=== PATIENT | female | born 1945 | race Caucasian/White ===

== ENCOUNTER 2020-03-26 11:26 | Inpatient (IN) | payer OTHER ==
[2020-03-26 12:43] LABS: Absolute Lymphocytes (CBC) 0.9 K/uL (0.7-4.9); Basophils % 0.4 % (0-1.3); Hematocrit 42.3 % (36.0-45.0); Lymphocytes % 7.7 % (15.3-44.8); MPV 7.7 fL (7.6-11.3); RBC Red Blood Cell Count 4.43 M/uL (3.86-4.86)
--- NOTE | 2020-03-26 12:48 | RAD REPORT ---
EXAM DESCRIPTION: RAD - Chest Single View - 03/26/2020 12:34 pm CLINICAL HISTORY: SOB Chest pain. COMPARISON: CHEST PA AND LAT 2 VIEW dated 05/08/2009 FINDINGS: Portable technique limits examination quality. Bilateral pulmonary opacities are present which may represent interstitial pneumonitis. This is likel y superimposed on a component of underlying pulmonary fibrosis. The heart is normal in size. No displ aced fractures.
[2020-03-26 13:04] LABS: Albumin 3.7 g/dL (3.4-5.0); Bilirubin Direct 0.2 mg/dL (0-0.2); Bilirubin Total 0.9 mg/dL (0.2-1.0); Magnesium 2.3 mg/dL (1.8-2.4); Potassium 4.7 mmol/L (3.5-5.1); Protein, Total 8.7 g/dL (6.4-8.2); Troponin (Emerg Dept Use Only) 0.02 ng/mL (0.0-0.045)
[2020-03-26 13:47] LABS: Blood Morphology Comment NOT SEEN (NOT SEEN); Platelet Estimate ADEQ; Urine White Blood Cell Casts OK
--- OUTSIDE RECORDS SUMMARY | 2020-03-26 15:28 | XMS REPORT ---
:1945 Author Organization e[employer]Works Care Team Providers Name Role Phone Julianne Turcios Provider Role Unavailable Allergies, Adverse Reactions, Alerts Substance Reaction Event Type Myrbenicoleroberta hali Drug Allergy Problems Problem Type Condition Code Onset Dates Condition Statu s Assessment Moderate protein-calorie E44.0 Act aneudy malnutrition Problem Atherosclerotic heart disease of I25.10 Active [place] coronary artery without angina pectoris Assessment Memory loss or impairment R41.3 Ac tive Problem Primary insomnia F51.01 Active Assessment Atherosclerotic heart disease of I25.10 Active [place] coronary artery without angina pectoris Problem Pure hypercholesterolemia E78.00 Ac tive Problem BMI 21.0-21.9, adult Z68.21 Active Problem Acquired hypothyroidism E03.9 Acti ve Problem Memory loss or impairment R41.3 Ac tive Problem Reactive depression F32.9 Active Assessment Pure hypercholesterolemia E78.00 Ac tive Assessment Essential hypertension I10 Activ e Problem Moderate protein-calorie E44.0 Act aneudy malnutrition Assessment Acquired hypothyroidism E03.9 Acti ve Problem Left hip pain M25.552 Active Problem Screening for breast cancer Z12.31 Active Problem Mixed stress and urge urinary N39.46 Active incontinence Problem Screening for osteoporosis Z13.820 A ctive Problem Age-related osteoporosis without M81.0 Active current pathological fracture Problem Encounter for immunization Z23 A ctive Assessment Type 2 diabetes mellitus without E11.9 Active complication, without long-term current use of insulin Problem Essential hypertension I10 Activ e Problem Coronary atherosclerosis due to I25.84 Active severely calcified coronary lesion Problem Diabetic mononeuropathy due to E13.41 Active secondary diabetes mellitus Problem Type 2 diabetes mellitus without E11.9 Active complication, without long-term current use of insulin Medications Medication Code Code Instructions Start End Status Dosage System Date Date Levothyroxine [facility] 61252135946 25 MCG Active TAKE O NE Sodium TABLET BY MOUTH DAILY Lipitor ND 79782317907 20 MG Active TAKE ONE TABLET BY MOUTH DAILY Lisinopril ND 51161177393 10 MG Orally Active 1 ta blet Once a day Metoprolol [facility] 53407440442 100 MG Orally Active sherin e one Succinate ER Once a day tablet b y mouth daily Sertraline HCl [facility] 67163922774 25 MG Orally Sep 22, Active 1 tablet Once a day 2018 Amaryl [facility] 68364520819 2 MG Orally Active 1 tablet Once a day with breakfast or the first main meal of the day Gabapentin [facility] 21361168608 300 MG Active TAKE ONE CAPSULE BY MOUTH TWICE A DAY Plavix [facility] 83906274023 75 MG Active TAKE ONE TABLET BY MOUTH DAILY Aricept [facility] 54477227561 10 MG Orally Oct 21, Active 1 table t at Once a day 2019 bedtime Megestrol [facility] 81221547185 40 MG Orally March 07, Active 1 tab let Acetate Twice a day 2019 Vitamin D-3 [facility] 45297537855 1000 UNIT Active 1 caps ule Orally Once a day Estradiol [facility] 57618604120 0.1 MG/GM Active 1 gm Vaginal three times a week Results Name Result Date Reference Range Unit Abnormali ty Flag HEMOGLOBIN A1C ----A1C 5.6 [id number] Summary Purpose eClinicalWorks Submission
--- OUTSIDE RECORDS SUMMARY | 2020-03-26 15:28 | XMS REPORT | Continuity of Care Document ---
:1945 Author Organization [facility] t Address [address] [place] [address] Care Team Providers Name Role Phone Unavailable Unavailable Unavailable Problems Condition Condition Condition Status Onset Resolution Last Treating Co mments Source Name Details Category Date Date Treatment Clinician Date Essential Essential Problem Active [facility] hypertensi hypertensi [facility]ila kes - on on [facility] Diabetic Diabetic Problem [facility] mononeurop mononeurop [facility] kes - athy due athy due Memori a to to l secondary secondary Outp ati diabetes diabetes ent mellitus mellitus Clinic s Encounter Encounter Problem [facility] immun[facility]ati immunizati Me moria on on l Outpati ent Clinics Coronary Coronary Problem [facility] atheroscle atheroscle [facility] - rosis due rosis due Koko lola to to l severely severely Outpat i calcified calcified ent coronary coronary Clinic s lesion lesion Pure Pure Diagnosis Active [facility] hyperchole hyperchole [facility]ila kes - sterolemia sterolemia Me moria l [facility] Acquired Acquired Diagnosis Active [facility] hypothyroi hypothyroi [facility]ila kes - dism dism Memoria l Outpati ent Clinics Type 2 Type [address] [facility] diabetes diabetes [facility] - mellitus mellitus Memori a without without l complicati complicati Ou tpati on, on, ent without without Clinics long-term long-term current current use of use of insulin insulin Primary Primary Problem Active [facility] insomnia insomnia [facility] Atheroscle Atheroscle Diagnosis Active [facility] rotic rotic [facility] - heart heart Memoria disease of disease of l rampart rampart [facility] coronary coronary ent artery artery Clinics without without angina angina pectoris pectoris Left hip Left hip Problem [facility] pain pain [facility] Mixed Mixed Problem Active [facility] stress and stress and Urmila kes - urge urge Memoria urinary urinary l incontinen incontinen Ou tpati ce ce ent Clinics Screening Screening Problem Active [facility] for for [facility] - osteoporos osteoporos Me kirk is is l [facility] Screening Screening Problem Active [facility] for breast for breast U[facility]ila kes - cancer cancer Memoria l [facility] BMI BMI Problem Active [facility] 21.0-21.9, 21.0-21.9, Urmila kes - adult adult [facility] l [facility] Clinics Age-relate Age-relate Problem Active [facility] - osteoporos osteoporos Me kirk is without is without l current current [facility] pathologic pathologic en t al al Clinics fracture fracture Reactive Reactive Problem Active [facility] depression depression [facility]ila kes - Memoria l [facility] Memory Memory Problem Active [facility] loss or loss or [facility] - impairment impairment Me moria l [facility] Moderate Moderate Problem Active [facility] protein-ca protein-ca Urmila - hollis hollis Memoria malnutriti malnutriti l on on [facility] Allergies, Adverse Reactions, Alerts Allergy Allergy Status Severity Reaction(s) Onset Inactive Treating Comm ents Source Name Type Date Date Clinician Alok Adverse Active shaky [facility] q Reaction [facility] Medications Ordered Filled Start Stop Current Ordering Indication Dosage Frequency Signature Comments Components Source Medication Medication Date Date Medication? Clinician (SIG) Name Name Megestrol Megestrol Yes Julianne [address] [facility] Acetate Acetate 5-20 [place] [facility] - 00:00: Memoria 00 l [facility] Aricept Aricept Yes Julianne [address] 1-03 [place] at bedtime [facility] - 00:[facility]: Memoria 00 l [facility] Sertraline Sertraline 2018-10 Yes Julianne [address] [facility] HCl HCl 2-05 [place] [facility] - 00:[facility]: Memoria 00 l [facility] Lisinopril Lisinopril Yes Julianne [address] [facility] [place] [facility] Estradiol Estradiol Yes Julianne [address] [facility] [place] [facility] Vitamin D-3 Vitamin D-3 Yes Julianne [address] [facility] [place] [facility] Gabapentin Gabapentin Yes Julianne TAKE ONE [facility] [place] CAPSULE BY [facility] - MOUTH Memoria TWICE A l DAY [facility] Amaryl Amaryl Yes Julianne [address] [facility] [place] with [facility] - breakfast Memoria or the l first main [facility] meal of ent the day Clinics Plavix Plavix Yes Julianne TAKE ONE [facility] [place] TABLET BY [facility] - MOUTH Memoria DAILY l Outpati ent Clinics Metoprolol Metoprolol Yes Julianne take one [facility] Succinate Succinate [place] tablet by [facility] - ER ER mouth Memoria daily l [facility]ics Lipitor Lipitor Yes Julianne TAKE ONE [facility] [place] TABLET BY [facility] - MOUTH Memoria DAILY l [facility] Levothyroxi Levothyroxi Yes Julianne TAKE ONE [facility] ne Sodium ne Sodium [place] TABLET BY [facility] - MOUTH Memoria DAILY l [facility] Clinics Procedures This patient has no known procedures. Encounters Start End Encounter Admission Attending Care Care Encounter Source Date/Time Date/Time Type Type Clinicians Facility Department ID 2020-03-07 2020-03-07 Outpatient Maryan Batista [id number] [facility] 11[facility]00 [facility] Medicine l Medicine Outpati ent Clinics 2019-12-01 2019-12-01 Outpatient Maryan Batista [id number] [facility] 09:40:00 09:40:00 [facility] Medicine Medicine Outpati ent Clinics 2019-10-21 2019-10-21 Outpatient Maryan Steinbergt [id number] [facility] 11:40:00 11:40:00 [facility] Medicine Medicine Outpati ent Clinics 2019-09-22 2019-09-22 Outpatient [facility] [id number] [facility] 09:40:00 09:40:00 [facility] Medicine l Medicine Outpati ent Clinics 2019-09-06 2019-09-06 Outpatient [facility] [id number] [facility] 09:00:00 09:00:00 t Specialty/U [facility]ila kes - Specialty rology Memori a /Urology Clinic l Clinic [facility] 2019-08-16 2019-08-16 Outpatient Maryan Steinbergt [id number] [facility] 15:11:00 15:11:00 t Specialty/U Urmila kes - Specialty rology Memori a /Urology Clinic l Clinic [facility] 2019-08-04 2019-08-04 [place] [id number] [facility] 09:22:00 09:22:00 t Specialty/U Urmila kes - Specialty rology Memori a /Urology Clinic l Clinic Outpati ent Clinics 2019-05-25 2019-05-25 [place] [id number] 13:18:00 13:18:00 t [facility] Outpati ent Clinics 2019-05-12 2019-05-12 [facility] [id number] [facility] 08:01:00 08:01:00 t Specialty/U Urmila kes - Specialty rology Memori a /Urology Clinic l Clinic Outpati ent Clinics 2019-05-11 2019-05-11 [facility] [id number] 09:45:00 09:45:00 t Specialty/U Urmila kes - Specialty rology Memori a /Urology Clinic l Clinic Outpati ent Clinics 2019-04-19 2019-04-19 [facility] [id number] 15:00:00 15:00:00 t Specialty/U Urmila kes - Specialty rology Memori a /Urology Clinic l Clinic Outpati ent Clinics 2019-04-12 2019-04-12 [facility] [id number] [facility] 16:11:00 16:11:00 t [facility] Outpati ent Clinics 2019-04-08 2019-04-08 [facility] [id number] 11:29:00 11:29:00 t Specialty/U Urmila kes - Specialty rology Memori a /Urology Clinic l Clinic Outpati ent Clinics 2019-04-06 2019-04-06 [place] [id number] 09:00:00 09:00:00 t Specialty/U Urmila kes - Specialty rology Memori a /Urology Clinic l Clinic Outpati ent Clinics 2019-03-30 2019-03-30 [place] [id number] [facility] 10:15:00 10:15:00 t Specialty/U Urmila kes - Specialty rology Memori a /Urology Clinic l Clinic Outpati ent Clinics 2019-03-01 2019-03-01 Outpatient [facility] [id number] 17[facility]24:00 17:24:00 t [facility] 2018-06-18 2018-06-18 [facility] [id number] 16:14:00 16:14:00 t [facility] 2018-06-16 2018-06-16 Outpatient [facility] [place] [id number] [facility] 10:55:00 10:55:00 t [facility] 2018-03-09 2018-03-09 Outpatient [facility] [id number] 11[facility]30:00 11:30:00 t [facility] Results This patient has no known results.
--- NOTE | 2020-03-26 15:53 | ER ---
Nurse's Notes [facility] Name: Pallavi Hopkins Age: 74 yrs Sex: Female : 1945 Arrival Date: 03/26/2020 Time: 11:29 Bed 4 Private MD: Karolina Whitaker Diagnosis: Weakness;Congestive heart failure, Hypoxia (82% RA) Presentation: 03/26 11:40 Chief complaint: Patient's son or daughter states: daughter reports that over the past ss week or so she has been forgetting things, but the past few days she has been very confused and seems short of breath. Coronavirus screen: Proceed with normal triage. Patient denies a cough. Patient denies shortness of breath or difficulty breathing. Patient denies measured and/or subjective temperature greater than 100.4F prior to today's visit. Patient denies travel on a cruise ship or to a country the [facility] currently lists as an affected area. Patient denies contact with known and/or suspected case of COVID-19. Ebola Screen: Patient denies exposure to infectious person. Patient denies travel to an Ebola-affected area in the 21 days before illness onset. Initial Sepsis Screen: Does the patient meet any 2 criteria? No. Patient's initial sepsis screen is negative. Does the patient have a suspected source of infection? No. Patient's initial sepsis screen is negative. Risk Assessment: Do you want to hurt yourself or someone else? Patient reports no desire to harm self or others. Onset of symptoms is unknown. 11:40 Method Of Arrival: Wheelchair 11:40 Acuity: SIMONA 3 ss Triage Assessment: 11:40 General: Appears distressed, comfortable, slender, Behavior is cooperative, anxious. bp Pain: Denies pain. EENT: No deficits noted. Neuro: Level of Consciousness is awake, alert, obeys commands, confused, Oriented to person, place. Cardiovascular: Rhythm is sinus tachycardia. Respiratory: No deficits noted. GI: No signs and/or symptoms were reported involving the gastrointestinal system. : No signs and/or symptoms were reported regarding the genitourinary system. Derm: No deficits noted. Musculoskeletal: No deficits noted. Historical: - Allergies: 11:43 No Known Allergies; ss - Home Meds: 17:21 levothyroxine 25 mcg tab 1 tab once daily [Active]; oxybutynin chloride 5 mg Oral tab 1 bp tab 2 times per day [Active]; donepezil 10 mg oral tab 1 tab nightly [Active]; lisinopril 10 mg Oral tab 1 tab once daily [Active]; metoprolol tartrate 100 mg Oral tab 1 tab once daily [Active]; atorvastatin 20 mg oral tab 1 tab once daily [Active]; megestrol 40 mg Oral tab 1 tab 2 times per day [Active]; gabapentin 300 mg oral cap 1 cap 3 times per day [Active]; clopidogrel 75 mg oral tab 1 tab once daily [Active]; sertraline 25 mg oral tab 1 tab once daily [Active]; - PMHx: 11:43 Hypertension; diabetes; CVA; ss - PSHx: 11:43 cardiac stents; ss - Immunization history:: Adult Immunizations up to date. - Social history:: Smoking status: Patient/guardian denies using tobacco, but has a distant history of tobacco abuse. Screenin:45 Abuse screen: Denies threats or abuse. Denies injuries from another. bp 11:45 Nutritional screening: No deficits noted. Tuberculosis screening: No symptoms or risk bp factors identified. Fall Risk None identified. Assessment: 11:40 General: SEE TRIAGE NOTE. bp 13:00 Reassessment: No changes from previously documented assessment. Patient is alert, bp oriented x 3, equal unlabored respirations, skin warm/dry/pink. 14:09 Reassessment: ALL CURRENT ORDERS COMPLETE AND RESULTED. VS STABLE ON MONITOR. NO ACUTE bp S/S AT THIS TIME. 15:00 Reassessment: PT RESTING QUIETLY, NO CHANGE IN NEURO STATUS. VS STABLE ON MONITOR. bp 15:24 Reassessment: PT ROOM AIR SAT WITH MINIMAL EXERTION OBSERVED TO DROP FROM 94% TO 82%. bp 16:58 Reassessment: ADMIT IN PROCESS. VS STABLE ON MONITOR. bp 17:42 Reassessment: ADMIT COMPLETE. PT DENTON WITH PCT. bp Vital Signs: 11:40 BP 155 / 107; Pulse 108; Resp 26; Temp 98.4(TE); Pulse Ox 100% on R/A; Weight 39.01 kg; ss 11:53 BP 149 / 63; Pulse 110; Resp 20; Pulse Ox 97% ; bp 12:28 BP 139 / 70; Pulse 111; Resp 20; Pulse Ox 94% ; bp 14:11 BP 134 / 66; Pulse 99; Resp 16; Pulse Ox 95% ; bp 15:00 BP 130 / 63; Pulse 100; Resp 16; Pulse Ox 95% ; bp 16:58 BP 143 / 74; Pulse 102; Resp 19; Pulse Ox 94% ; bp 17:41 BP 125 / 63; Pulse 104; Resp 19; Pulse Ox 95% ; bp ED Course: 11:29 Patient arrived in ED. mr 11:30 Karolina Whitaker is Private Physician. mr 11:42 Triage completed. ss 11:43 Arm band placed on left wrist. ss 11:45 Patient has correct armband on for positive identification. Placed in gown. Bed in low bp position. Call light in reach. Side rails up X2. Adult w/ patient. 11:46 Art Orlando, RN is Primary Nurse. bp 11:48 Crispin Chery MD is Attending Physician. kdr 12:25 Inserted saline lock: 22 gauge in right forearm, using aseptic technique. Blood bp collected. 12:32 XRAY Chest (1 view) In Process Unspecified. EDMS 15:51 Veronica Tony MD is Hospitalizing Provider. kdr 17:13 No provider procedures requiring assistance completed. Patient admitted, IV remains in bp place. 17:13 Repeat lab(s) drawn. by de, sent to lab. [facility] Administered Medications: 16:10 Drug: Lasix 20 mg Route: IVP; Site: right forearm; bp 17:43 Follow up: Response: No adverse reaction bp Outcome: 15:52 Decision to Hospitalize by Provider. kdr 17:42 Admitted to Med/surg accompanied by tech, family with patient, via wheelchair, room bp 210, with chart, Report called to JAIME MAHAJAN FOR TJ RN 17:42 Condition: stable 17:42 Instructed on the need for admit. 17:58 Patient left the ED. [email or web address] Signatures: Dispatcher [employer] EDMS Crispin Chery MD MD [facility] Hemalatha CrDorys marcelo, RN RN ss Clayton Coats RN RN [id number] Charlee Garcia 3 Art Orlando, KEYSHAWN RN bp
--- NOTE | 2020-03-26 15:53 | EDPHYS ---
Physician Documentation [facility] Name: Pallavi Hopkins Age: 74 yrs Sex: Female : 1945 Arrival Date: 03/26/2020 Time: 11:29 Bed 4 Private MD: Karolina Whitaker ED Physician Crispin Chery HPI: 03/27 08:43 This 74 yrs old Female presents to ER via Wheelchair with complaints of kdr dehydration,confusion. 08:43 This 74 yrs old Female presents to ER via Wheelchair with complaints of kdr dehydration, confusion and SOB/weak. 08:43 The patient had daughter state for the past week she has become more confused, SOB with kdr any exertion and the daughter is concerned that she may be dehydrated. The patient is awake and alert and answers questions appropriately but does appear slightly dypsneic.. Onset: The symptoms/episode began/occurred gradually, at an unknown time. Has been worsening over the past week or so.. Severity of symptoms: At their worst the symptoms were mild in the emergency department the symptoms are unchanged. The patient has not experienced similar symptoms in the past. The patient has not recently seen a physician. Historical: - Allergies: 03/26 11:43 No Known Allergies; ss - Home Meds: 17:21 levothyroxine 25 mcg tab 1 tab once daily [Active]; oxybutynin chloride 5 mg Oral tab 1 bp tab 2 times per day [Active]; donepezil 10 mg oral tab 1 tab nightly [Active]; lisinopril 10 mg Oral tab 1 tab once daily [Active]; metoprolol tartrate 100 mg Oral tab 1 tab once daily [Active]; atorvastatin 20 mg oral tab 1 tab once daily [Active]; megestrol 40 mg Oral tab 1 tab 2 times per day [Active]; gabapentin 300 mg oral cap 1 cap 3 times per day [Active]; clopidogrel 75 mg oral tab 1 tab once daily [Active]; sertraline 25 mg oral tab 1 tab once daily [Active]; - PMHx: 11:43 Hypertension; diabetes; CVA; ss - PSHx: 11:43 cardiac stents; ss - Immunization history:: Adult Immunizations up to date. - Social history:: Smoking status: Patient/guardian denies using tobacco, but has a distant history of tobacco abuse. ROS: 03/27 08:43 Constitutional: Negative for fever, chills, and weight loss, Eyes: Negative for injury, kdr pain, redness, and discharge, Neck: Negative for injury, pain, and swelling, Cardiovascular: Negative for chest pain, palpitations, and edema, Abdomen/GI: Negative for abdominal pain, nausea, vomiting, diarrhea, and constipation, Back: Negative for injury and pain, : Negative for injury, bleeding, discharge, and swelling, MS/Extremity: Negative for injury and deformity, Skin: Negative for injury, rash, and discoloration, Allergy/Immunology: Negative for hives, rash, and allergies, Endocrine: Negative for neck swelling, polydipsia, polyuria, polyphagia, and marked weight changes, Hematologic/Lymphatic: Negative for swollen nodes, abnormal bleeding, and unusual bruising. Respiratory: Positive for hemoptysis, shortness of breath, Negative for orthopnea, pleurisy. 08:43 Neuro: Positive for altered mental status, weakness, Negative for hearing loss, loss of kdr consciousness. Exam: 08:43 Constitutional: This is a well developed, well nourished patient who is awake, alert, kdr and in no acute distress. Head/Face: Normocephalic, atraumatic. 08:43 Chest/axilla: Normal chest wall appearance and motion. Nontender with no deformity. kdr No lesions are appreciated. Cardiovascular: Regular rate and rhythm with a normal S1 and S2. No gallops, murmurs, or rubs. Normal PMI, no JVD. No pulse deficits. 08:43 Respiratory: mild respiratory distress is noted, Respirations: labored breathing, that is mild, Breath sounds: rales, that are mild, are scattered, are located in both bases, are heard diffusely. Vital Signs: 03/26 11:40 BP 155 / 107; Pulse 108; Resp 26; Temp 98.4(TE); Pulse Ox 100% on R/A; Weight 39.01 kg; ss 11:53 BP 149 / 63; Pulse 110; Resp 20; Pulse Ox 97% ; bp 12:28 BP 139 / 70; Pulse 111; Resp 20; Pulse Ox 94% ; bp 14:11 BP 134 / 66; Pulse 99; Resp 16; Pulse Ox 95% ; bp 15:00 BP 130 / 63; Pulse 100; Resp 16; Pulse Ox 95% ; bp 16:58 BP 143 / 74; Pulse 102; Resp 19; Pulse Ox 94% ; bp 17:41 BP 125 / 63; Pulse 104; Resp 19; Pulse Ox 95% ; bp MDM: 15:52 Patient medically screened. [facility] 03/27 08:43 Data reviewed: vital signs, nurses notes, lab test result(s), EKG, radiologic studies. kdr Counseling: I had a detailed discussion with the patient and/or guardian regarding: the historical points, exam findings, and any diagnostic results supporting the discharge/admit diagnosis, lab results, radiology results, the need for further work-up and treatment in the hospital. ED course: Reason for obs admission: When the patient stood to ambulate, she became immediately more SOB and her saturation. 03/26 12:13 Order name: Basic Metabolic Panel; Complete Time: 13:48 [facility] 03/26 12:13 Order name: CBC with Diff; Complete Time: 14:30 [facility] 03/26 12:13 Order name: LFT's; Complete Time: 13:48 [facility] 03/26 12:13 Order name: Magnesium; Complete Time: 13:48 [facility] 03/26 12:13 Order name: NT PRO-BNP; Complete Time: 13:48 [facility] 03/26 12:13 Order name: Troponin (emerg Dept Use Only); Complete Time: 13:48 [facility] 03/26 13:48 Order name: CBC Smear Scan; Complete Time: 14:30 [facility] 03/26 16:37 Order name: CKMB Creatine Kinase MB [facility] 03/26 16:37 Order name: Troponin I [facility] 03/26 16:37 Order name: CBC with Automated Diff [facility] 03/26 16:37 Order name: CBC with Automated Diff [facility] 03/26 16:37 Order name: Comprehensive Metabolic Panel [facility] 03/26 16:37 Order name: Comprehensive Metabolic Panel [facility] 03/26 16:37 Order name: Magnesium [facility] 03/26 12:13 Order name: XRAY Chest (1 view); Complete Time: 13:03 [facility] 03/26 12:13 Order name: EKG; Complete Time: 12:14 [facility] 03/26 12:13 Order name: Cardiac monitoring; Complete Time: 12:17 [facility] 03/26 16:37 Order name: CONS Pharmacy Consult [facility] 03/26 16:37 Order name: CONS Physician Consult [facility] 03/26 16:37 Order name: Physical Therapy Consult [facility] 03/26 16:37 Order name: Consistent Carb (ADA) 1800 Dimitri [facility] 03/26 16:37 Order name: Echo with Doppler [facility] 03/26 16:37 Order name: Magnesium [facility] 03/26 16:37 Order name: Magnesium [facility] 03/26 16:37 Order name: Magnesium [facility] 03/26 16:38 Order name: CORONAVIRUS [facility] 03/26 16:38 Order name: Sputum Culture [facility] 03/26 16:38 Order name: Sputum Gram Stain [facility] 03/26 16:39 Order name: Occupational Therapy Consult [facility] 03/26 12:13 Order name: EKG - Nurse/Tech; Complete Time: 12:27 kdr 03/26 12:13 Order name: IV Saline Lock; Complete Time: 12:27 kdr 03/26 12:13 Order name: Labs collected and sent; Complete Time: 12:27 kdr 03/26 12:13 Order name: O2 Per Protocol; Complete Time: 12:17 kdr 03/26 12:13 Order name: O2 Sat Monitoring; Complete Time: 12:17 kdr Administered Medications: 03/26 16:10 Drug: Lasix 20 mg Route: IVP; Site: right forearm; bp 17:43 Follow up: Response: No adverse reaction bp Disposition: 03/26/20 15:52 Hospitalization ordered by Veronica Tony for Inpatient Admission. Preliminary diagnosis are Weakness, Congestive heart failure, Hypoxia (82% RA). - Bed requested for Telemetry/MedSurg (Inpatient). - Status is Inpatient Admission. jl7 - Condition is Fair. - Problem is new. - Symptoms have improved. Signatures: Dispatcher [employer] [facility] Caitlin Monterroso RN RN dw Crispin Chery MD MD kdr Dorys Alcantara RN KEYSHAWN ss Clayton Coats RN RN jl7 Art Orlando RN RN bp Corrections: (The following items were deleted from the chart) 17:10 15:52 Hospitalization Ordered by Veronica Tony MD for Inpatient Admission. Preliminary dw diagnosis is Weakness; Congestive heart failure, Hypoxia (82% RA). Bed requested for Telemetry/MedSurg (Inpatient). Status is Inpatient Admission. Condition is Fair. Problem is new. Symptoms have improved. kdr 17:58 17:10 03/26/2020 15:52 Hospitalization Ordered by Veronica Tony MD for Inpatient jl7 Admission. Preliminary diagnosis is Weakness; Congestive heart failure, Hypoxia (82% RA). Bed requested for Telemetry/MedSurg (Inpatient). Status is Inpatient Admission. Condition is Fair. Problem is new. Symptoms have improved. dw
[2020-03-26] MEDS ORDERED: HYDRALAZINE HCL 20 MG/ML VIAL IV PRN (16:30)
[2020-03-26] MEDS ORDERED: FUROSEMIDE 40 MG/4 ML VIAL IV ONE (16:30)
[2020-03-26] MEDS ORDERED: ONDANSETRON 4 MG/2 ML VIAL IV PRN ×2 (16:30→16:33)
[2020-03-26] MEDS ORDERED: GLUCAGON 1 MG/VIAL IM PRN (16:31)
[2020-03-26] MEDS ORDERED: D50W 25 GM/50 ML SYRINGE/VIAL IV PRN (16:31)
[2020-03-26] MEDS ORDERED: MORPHINE 2 MG/ML SYR IV PRN (16:33)
--- NOTE | 2020-03-26 16:43 | P.HP ---
Certification for Inpatient With expected LOS: >2 Midnights Patient will require the following post-hospital care: None Practitioner: I am a practitioner with admitting privileges, knowledge of patient current condition, hospital course, and medical plan of care. Services: Services provided to patient in accordance with Admission requirements found in Title 42 Section 412.3 of the Code of Federal Regulations Patient History Date of Service: 03/26/20 History of Present Illness: 74-year-old female with past medical history of hypertension, diabetes mellitus, brought in by daughter today because of increasing shortness of breath since the last 3 months, with new onset weakness, decreased appetite and confusion as per daughter. Patient denies confusion she states she felt too weak and having worsening shortness of breath since the last 1 the but admits to a history of chronic shortness of breath since the last 3 months. She has seen by her primary and was seen again today and referred to the ER. In the ER patient chest x-ray shows evidence of pneumonitis superimposed on interstitial fibrosis. Patient admits to feeling of cough but denies actual cough. She denies any sputum. She denies any fever or chills. She denies any recent travel or chest pain. Patient was satting well on room air but with getting up from bed O2 sat dropped to 82%. Home medications list reviewed: No (Awaiting home med list) - Past Medical/Surgical History Has patient received pneumonia vaccine in the past: No Diabetic: Yes -: Hypertension diabetes-diet controlled now, dementia -: Chronic weight loss Past Surgical History: Reviewed- Non-Contributory - Family History Family History: Reviewed- Non-Contributory - Social History Smoking Status: Never smoker Alcohol use: No CD- Drugs: No Caffeine use: No Place of Residence: Home Review of Systems 10-point ROS is otherwise unremarkable General: Weakness, Malaise Eyes: Unremarkable ENT: Unremarkable Respiratory: Cough, Shortness of Breath, SOB with Excertion Cardiovascular: Unremarkable Gastrointestinal: Unremarkable Genitourinary: Unremarkable Musculoskeletal: Unremarkable Integumentary: Unremarkable Neurological: Weakness Physical Examination - Vital Signs Temperature: 98 F Blood Pressure: 155/61 Pulse: 108 Respirations: 21 - Physical Exam General: In no apparent distress, Oriented x3, Cooperative, Other (Chronically ill-looking elderly female) HEENT: Atraumatic, Normocephalic, PERRLA Neck: Supple, 2+ carotid pulse no bruit Respiratory: Normal air movement, Diminished Cardiovascular: Normal pulses, Regular rate/rhythm, Normal S1 S2 Gastrointestinal: Normal bowel sounds, Soft and benign, Non-distended Musculoskeletal: No clubbing, No swelling Integumentary: No rashes, No breakdown Neurological: Normal gait, Normal speech, Normal strength at 5/5 x4 extr, Normal tone External genitalia: No edema, No lesions - Studies Laboratory Data (last 24 hrs) 03/26/20 12:25: WBC 12.0 H, Hgb 13.9, Hct 42.3, Plt Count 323 03/26/20 12:25: Sodium 132 L, Potassium 4.7, BUN 25 H, Creatinine 0.80, Glucose 116 H, Magnesium 2.3, Total Bilirubin 0.9, AST 28, ALT 29, Alkaline Phosphatase 63 Imagings Data: CLINICAL HISTORY: SOB Chest pain. COMPARISON: CHEST PA AND LAT 2 VIEW dated 05/08/2009 FINDINGS: Portable technique limits examination quality. Bilateral pulmonary opacities are present which may represent interstitial pneumonitis. This is likely superimposed on a component of underlying pulmonary fibrosis. The heart is normal in size. No displaced fractures. Assessment and Plan - Problems (Diagnosis) (1) Pneumonitis Current Visit: Yes Status: Acute (2) Hypertension Current Visit: Yes Status: Acute (3) Diabetes mellitus Current Visit: Yes Status: Acute (4) Dementia Current Visit: Yes Status: Acute Discharge Plan: Home Plan to discharge in: 48 Hours - Advance Directives Does patient have a Living Will: No Does patient have a Durable POA for Healthcare: No - Code Status/Comfort Care Code Status: Full Code Physician Review Additional Text: Hypoxemia-likely due to acute pneumonitis Will obtain CT lungs to rule out underlying PE and associated ammonia We start patient on empirical steroids We start antibiotics with Rocephin next the obtain sputum for culture and sensitivity. Obtain covid 19 testing Hypertension-IV hydralazine p.r.n. Obtain home meds and review Avoid beta blockers for now if any History of diabetes-daughter reports now diet controlled Given need for steroids we start insulin with sliding scale as tolerated History of dementia patient is alert and oriented now, continue to monitor resume home meds DVT prophylaxis-subcutaneous heparin Advanced directive-discussed with patient, patient wishes to be full code. Time spent in discussion 10 min Total time spent review of record discussion with patient an evaluation greater than 70 min. Time Spent Managing Pts Care (In Minutes): 65
[2020-03-26] MEDS ORDERED: FUROSEMIDE 20 MG/ 2ML VIAL ONE (16:45)
[2020-03-26] MEDS ORDERED: HEPARIN 5000 UNIT/ML 1 ML VIAL SQ SCH (17:00)
[2020-03-26 17:41] LABS: Magnesium 2.4 mg/dL (1.8-2.4); Troponin I 0.02 ng/mL (0.0-0.045)
[2020-03-26] MEDS: PANTOPRAZOLE 40MG TABLET PO SCH (18:27)
[2020-03-26] MEDS: CEFTRIAXONE/SWI 1gm 1 GM/10 ML SYR IV SCH (18:27)
[2020-03-26] MEDS: METHYLPREDNISOLONE 125 MG INJ IV SCH (18:27)
[2020-03-26] MEDS ORDERED: PNEUMOCOCCAL VACCINE 0.5 ML IMVAC ONE (19:00)
[2020-03-26] MEDS: IPRATROPIUM BROM 0.5MG/2.5ML NEB SCH (20:00)
[2020-03-26] MEDS: ALBUTEROL 2.5 MG/3 ML NEB SOL NEB SCH ×2 (20:00→23:55)
[2020-03-26] MEDS: LORAZEPAM 0.5 MG TABLET PO PRN (20:45)
[2020-03-26] MEDS: GUAIFENESIN 600 MG SA TAB PO SCH (20:45)
[2020-03-26] MEDS ORDERED: INSULIN -REGULAR HUMAN 50 UNIT/0.5 ML ML SQ SCH (21:00)
[2020-03-26] MEDS: INSULIN -REGULAR HUMAN 50 UNIT/0.5 ML ML SQ SCH (21:09)
[2020-03-27] MEDS: METHYLPREDNISOLONE 125 MG INJ IV SCH ×2 (00:23→06:21)
[2020-03-27] MEDS ORDERED: NA CHLORIDE 0.9% 250 ML IV ONE (01:17)
[2020-03-27] MEDS: ALBUTEROL 2.5 MG/3 ML NEB SOL NEB SCH ×3 (03:45→12:00)
[2020-03-27] MEDS: IPRATROPIUM BROM 0.5MG/2.5ML NEB SCH ×2 (03:45→08:37)
[2020-03-27 04:26] LABS: Absolute Lymphocytes (CBC) 0.3 K/uL (0.7-4.9); Basophils % 0.1 % (0-1.3); Hematocrit 37.5 % (36.0-45.0); Lymphocytes % 3.6 % (15.3-44.8); MPV 8.3 fL (7.6-11.3); RBC Red Blood Cell Count 3.92 M/uL (3.86-4.86)
[2020-03-27 04:39] LABS: Albumin 3.1 g/dL (3.4-5.0); Bilirubin Total 0.6 mg/dL (0.2-1.0); Magnesium 2.2 mg/dL (1.8-2.4); Potassium 3.8 mmol/L (3.5-5.1); Protein, Total 7.9 g/dL (6.4-8.2)
[2020-03-27] MEDS: PANTOPRAZOLE 40MG TABLET PO SCH ×2 (08:00→15:29)
[2020-03-27] MEDS: INSULIN -REGULAR HUMAN 50 UNIT/0.5 ML ML SQ SCH ×4 (08:48→21:36)
[2020-03-27] MEDS: ASPIRIN EC 81 MG TAB PO SCH (08:48)
[2020-03-27] MEDS: ENOXAPARIN 40 MG/0.4 ML SQ SCH (08:48)
[2020-03-27] MEDS: GUAIFENESIN 600 MG SA TAB PO SCH ×2 (08:48→21:34)
[2020-03-27] MEDS ORDERED: FUROSEMIDE 40 MG TABLET PO SCH (09:00)
[2020-03-27] MEDS ORDERED: lisinopriL 10 MG TAB PO PRN (11:19)
[2020-03-27] MEDS ORDERED: METOPROLOL XL 100 MG TAB PO SCH (12:00)
[2020-03-27] MEDS ORDERED: IPRATROPIUM BROM 0.5MG/2.5ML NEB PRN ×2 (12:55→15:00)
[2020-03-27] MEDS ORDERED: ALBUTEROL 2.5 MG/3 ML NEB SOL NEB PRN ×2 (12:55→15:00)
--- NOTE | 2020-03-27 12:56 | P.CNS ---
Date of Consult: 03/27/20 Reason for Consult: Pulmonary fibrosis Chief Complaint: Confusion shortness of breath interstitial lung disease History of Present Illness: Patient is a very poor historian current daughter by her bedside 88 eating very well losing weight confusion and shortness of breath patient is a former smoker lives with her some difficulty swallowing Allergies No Known Allergies Allergy (Unverified 03/26/20 16:58) Home Medications: Atorvastatin Calcium [Lipitor*] 1 tab PO DAILY 03/27/20 Clopidogrel Bisulfate [Plavix*] 1 tab PO DAILY 03/27/20 Donepezil [Aricept*] 10 mg PO BEDTIME 03/27/20 Gabapentin 1 tab PO BID 03/27/20 Glimepiride [Amaryl*] 1 tab PO DAILY 03/27/20 Levothyroxine [Synthroid] 25 mcg PO [id number] 03/27/20 Lisinopril [Zestril] 1 tab PO DAILYPRN PRN 03/27/20 Megestrol [Megace*] 1 tab PO BID 03/27/20 Metoprolol Succinate [Kapspargo Sprinkle] 1 tab PO DAILY 03/27/20 Oxybutynin Chloride 1 tab PO BID 03/27/20 Sertraline [Zoloft*] 25 mg PO DAILY 03/27/20 - Past Medical/Surgical History Diabetic: Yes -: Hypertension diabetes-diet controlled now, dementia -: Chronic weight loss -: Coronary artery disease -: Stroke - Social History Smoking Status: Former smoker Alcohol use: No CD- Drugs: No Caffeine use: No Place of Residence: Home Review of Systems General: Weakness Respiratory: Shortness of Breath Gastrointestinal: Other (Difficulty swallowing) Physical Examination Temp Pulse Resp BP Pulse Ox 97.4 F 126 H 18 104/62 95 03/27/20 12:00 03/27/20 12:00 03/27/20 12:00 03/27/20 12:00 03/27/20 12:00 General: Alert, Oriented x3 Neck: Supple Respiratory: Clear to auscultation bilaterally Cardiovascular: No edema, Regular rate/rhythm Gastrointestinal: Normal bowel sounds Laboratory Data (last 24 hrs) 03/26/20 12:25: WBC 12.0 H, Hgb 13.9, Hct 42.3, Plt Count 323 03/26/20 12:25: Sodium 132 L, Potassium 4.7, BUN 25 H, Creatinine 0.80, Glucose 116 H, Magnesium 2.3, Total Bilirubin 0.9, AST 28, ALT 29, Alkaline Phosphatase 63 - Problems (1) Pulmonary fibrosis Current Visit: Yes Status: Acute Plan: Patient was a former smoker she quit about 8 years ago chest x-ray has shown some interstitial lung disease no evidence of sepsis labs reviewed vital signs stable room-air sats satisfactory history of diabetes hypertension and depression undergoing speech eval, CT scan of chest ordered. Pt will need Brovana or perfoemist at home.Suspect severe COPD. Does not qulaify for home O2. May have underlying depression
[2020-03-27] MEDS: GLUCERNA SHAKE 237 ML CAN PO SCH ×2 (13:00→21:35)
--- NOTE | 2020-03-27 14:56 | RAD REPORT ---
EXAM DESCRIPTION: RAD - Barium Swallow Modified - 03/27/2020 2:47 pm CLINICAL HISTORY: aspiration COMPARISON: None. TECHNIQUE: The patient was given liquid, semi-solid and solid forms of barium. Lateral view fluorosc opic imaging was performed in conjunction with speech pathology service. FINDINGS: Cineloop acquisitions: 26 Fluoro time: 5 minutes 23 seconds laryngeal penetration thin and nectar, not cleared aspiration on thin and nectar, no cough pharyngeal residue - vallecular modified esophageal stasis, delayed swallow - severe - with all consistencies IMPRESSION: Modified barium swallow as summarized above and fully detailed on speech pathology repor magno
--- NOTE | 2020-03-27 15:22 | RAD REPORT ---
EXAM DESCRIPTION: CT - Thorax Wo Con - 03/27/2020 3:13 pm CLINICAL HISTORY: PUlmonary fibrosis COMPARISON: Chest Single View dated 03/26/2020; Barium Swallow Modified dated 03/27/2020 TECHNIQUE: Axial 5 mm thick images of the chest were obtained without IV contrast. Oral contrast is in place from modified barium swallow. All CT scans are performed using dose optimization technique as appropriate and may include automated exposure control or mA/KV adjustment according to patient size. FINDINGS: Numerous bulla and bleb noted in the upper lung escobar. Interstitial thickening is present throughout the lung escobar. Findings are more prominent in a subpleural distribution. No bronchiecta sis changes seen. Motion limits the lung base assessment. In the posterior aspect of the right upper lobe and in the superior segment right lower lobe there is some mild alveolar component. No suspiciou s mass or nodule. No pleural thickening or pleural effusion. No pneumothorax. No abnormal mediastinal or hilar masses or lymphadenopathy seen. No gross aortic or pulmonary artery finding suspected. Assessment is limited in the absence of IV contrast. No pericardial thickening or effusion. Dense coronary artery calcifications are present. No chest wall mass or abnormal axillary lymphadenopathy. Contrast is present in the esophagus likely reflux. Patient underwent modified barium swallow prior t o the study. IMPRESSION: Extensive, predominantly subpleural interstitial thickening pattern with scattered bulla and bleb formation in each upper lobe. Minimal alveolar components in the posterior right upper lobe and superior segment right lower lobe. Patient could have a mild right lung field pneumonia component superimposed on the chronic fibrotic l nora pattern. CT pattern is consistent with idiopathic pulmonary fibrosis.
[2020-03-27 15:28] LABS: Thyroid Stimulating Hormone 1.93 uIU/mL (0.360-3.740)
--- NOTE | 2020-03-27 15:36 | P.PN ---
Subjective Date of Service: 03/27/20 Chief Complaint: Confusion shortness of breath interstitial lung disease Subjective: No new changes, No C/O voiced (Noted with dysphagia on swallow eval -s/p barium swallow study done), New changes Physical Examination - Vital Signs Temperature: 97.4 F Blood Pressure: 104/62 Pulse: 126 Respirations: 18 Pulse Ox (%): 95 - Physical Exam General: Alert, Oriented x3, Cachectic HEENT: Atraumatic, Normocephalic, Other Neck: 2+ carotid pulse no bruit, JVD not distended Respiratory: Diminished, Other (improving aeration) Cardiovascular: Normal pulses, Regular rate/rhythm, Normal S1 S2 Gastrointestinal: Normal bowel sounds, Soft and benign, Non-distended Musculoskeletal: No clubbing, No swelling - Studies Laboratory Last Values WBC 12.0 K/uL (4.3-10.9) H 03/26/20 12:25 RBC 4.43 M/uL (3.86-4.86) 03/26/20 12:25 Hgb 13.9 g/dL (12.0-15.0) 03/26/20 12:25 Hct 42.3 % (36.0-45.0) 03/26/20 12:25 MCV 95.3 fL (80-100) 03/26/20 12:25 MCH 31.4 pg (27.0-35.0) 03/26/20 12:25 MCHC 32.9 g/dL (32.0-36.0) 03/26/20 12:25 RDW 15.0 % (12.1-15.2) 03/26/20 12:25 Plt Count 323 K/uL (152-406) 03/26/20 12:25 MPV 7.7 fL (7.6-11.3) 03/26/20 12:25 Neutrophils % 85.8 % (41.7-73.7) H 03/26/20 12:25 Lymphocytes % 7.7 % (15.3-44.8) L 03/26/20 12:25 Monocytes % 5.9 % (3.3-12.3) 03/26/20 12:25 Eosinophils % 0.2 % (0-4.4) 03/26/20 12:25 Basophils % 0.4 % (0-1.3) 03/26/20 12:25 Absolute Neutrophils 10.3 K/uL (1.8-8.0) H 03/26/20 12:25 Absolute Lymphocytes 0.9 K/uL (0.7-4.9) 03/26/20 12:25 Absolute Monocytes 0.7 K/uL (0.1-1.3) 03/26/20 12:25 Absolute Eosinophils 0.0 K/uL (0-0.5) 03/26/20 12:25 Absolute Basophils 0.0 K/uL (0-0.5) 03/26/20 12:25 Morphology Comment Not seen (NOT SEEN) 03/26/20 12:25 Sodium 132 mmol/L (136-145) L 03/26/20 12:25 Potassium 4.7 mmol/L (3.5-5.1) 03/26/20 12:25 Chloride 99 mmol/L (98-107) 03/26/20 12:25 Carbon Dioxide 26 mmol/L (21-32) 03/26/20 12:25 BUN 25 mg/dL (7-18) H 03/26/20 12:25 Creatinine 0.80 mg/dL (0.55-1.3) 03/26/20 12:25 Estimated GFR 70 mL/min (=/>90) L 03/26/20 12:25 Glucose 116 mg/dL (74-106) H 03/26/20 12:25 Calcium 9.7 mg/dL (8.5-10.1) 03/26/20 12:25 Magnesium 2.3 mg/dL (1.8-2.4) 03/26/20 12:25 Total Bilirubin 0.9 mg/dL (0.2-1.0) 03/26/20 12:25 Direct Bilirubin 0.2 mg/dL (0-0.2) 03/26/20 12:25 AST 28 U/L (15-37) 03/26/20 12:25 ALT 29 U/L (12-78) 03/26/20 12:25 Alkaline Phosphatase 63 U/L (45-117) 03/26/20 12:25 Rapid Troponin I 0.02 ng/mL (0.0-0.045) 03/26/20 12:25 NT-Pro-B Natriuret Pep 1310 pg/mL (<450) H 03/26/20 12:25 Serum Total Protein 8.7 g/dL (6.4-8.2) H 03/26/20 12:25 Albumin 3.7 g/dL (3.4-5.0) 03/26/20 12:25 Globulin 5.0 g/dL (2.3-3.5) H 03/26/20 12:25 Albumin/Globulin Ratio 0.7 (1.1-1.8) L 03/26/20 12:25 Medications List Reviewed: Yes Assessment And Plan - Current Problems (Diagnosis) (1) Pneumonitis Current Visit: Yes Status: Acute (2) Hypertension Current Visit: Yes Status: Acute (3) Diabetes mellitus Current Visit: Yes Status: Acute (4) Dementia Current Visit: Yes Status: Acute (5) Dysphagia Current Visit: Yes Status: Acute (6) Dysphagia causing pulmonary aspiration with swallowing Current Visit: Yes Status: Acute Physician Review Additional Text: #Dysphagia - due to dementia - failed swallow eval with all consistency on barium swallow - keep NPO now except for pills -family d/w -grand-daughter in room #Hypoxemia-likely due to right Pneumonia and acute pneumonitis from dysphagia - - will dc empirical steroids -c/w antibiotics with Rocephin - wbc trending down -follow sputum for culture and sensitivity. -follow covid 19 testing Hypertension-controlled -avoid beta blockers for now if any History of diabetes-on Amaryl - will hold for now since NPO -previously diet controlled -c/w insulin sliding scale History of dementia -start Aricept and namenda Anorexia - on megace Asthenia - start PT/OT, may need SNF -discussed with family today DVT prophylaxis-subcutaneous heparin Advanced directive- full code.
[2020-03-27] MEDS: Ringers Lactate 1,000 ML IV SCH (16:18)
[2020-03-27] MEDS: CEFTRIAXONE/SWI 1gm 1 GM/10 ML SYR IV SCH (17:00)
[2020-03-27] MEDS: ARFORMOTEROL TARTRATE 15 MCG/2 ML VIAL.NEB NEB SCH (19:30)
[2020-03-27] MEDS ORDERED: predniSONE 20 MG TAB PO SCH (21:00)
[2020-03-27] MEDS: GABAPENTIN 300 MG CAP PO SCH (21:34)
[2020-03-27] MEDS: DONEPEZIL HCL 5 MG TAB PO SCH (21:34)
[2020-03-27] MEDS: OXYBUTYNIN CHLORIDE 5 MG TAB PO SCH (21:34)
[2020-03-27] MEDS: MEGESTROL 40 MG TAB PO SCH (21:35)
[2020-03-28] MEDS: LORAZEPAM 0.5 MG TABLET PO PRN (01:02)
[2020-03-28] MEDS: Ringers Lactate 1,000 ML IV SCH ×2 (01:09→09:09)
[2020-03-28] MEDS ORDERED: HALOPERIDOL LACT 5 MG/ML INJ IV ONE ×2 (02:52→06:35)
[2020-03-28 04:29] LABS: Absolute Lymphocytes (CBC) 1.1 K/uL (0.7-4.9); Basophils % 0.4 % (0-1.3); Hematocrit 36.3 % (36.0-45.0); Lymphocytes % 4.4 % (15.3-44.8); MPV 8.2 fL (7.6-11.3); RBC Red Blood Cell Count 3.75 M/uL (3.86-4.86)
[2020-03-28 04:39] LABS: Albumin 2.8 g/dL (3.4-5.0); Bilirubin Total 0.3 mg/dL (0.2-1.0); Magnesium 2.3 mg/dL (1.8-2.4); Potassium 4.3 mmol/L (3.5-5.1); Protein, Total 7.1 g/dL (6.4-8.2)
[2020-03-28 05:06] LABS: Blood Morphology Comment NOT SEEN (NOT SEEN); Platelet Estimate ADEQ
[2020-03-28] MEDS: LEVOTHYROXINE SOD 0.025 MG TAB PO SCH (06:43)
[2020-03-28] MEDS: INSULIN -REGULAR HUMAN 50 UNIT/0.5 ML ML SQ SCH ×4 (07:30→20:42)
[2020-03-28] MEDS ORDERED: GLIMEPIRIDE 2 MG TABLET PO SCH (08:00)
[2020-03-28] MEDS: GLUCERNA SHAKE 237 ML CAN PO SCH ×3 (09:00→20:48)
[2020-03-28] MEDS: MEGESTROL 40 MG TAB PO SCH ×2 (09:01→20:47)
[2020-03-28] MEDS: SERTRALINE HCL 50 MG TAB PO SCH (09:01)
[2020-03-28] MEDS: CLOPIDOGREL 75 MG TABLET PO SCH (09:01)
[2020-03-28] MEDS: ENOXAPARIN 40 MG/0.4 ML SQ SCH (09:01)
[2020-03-28] MEDS: ATORVASTATIN 20 MG TAB PO SCH (09:01)
[2020-03-28] MEDS: OXYBUTYNIN CHLORIDE 5 MG TAB PO SCH ×2 (09:02→20:47)
[2020-03-28] MEDS: GABAPENTIN 300 MG CAP PO SCH ×2 (09:02→20:47)
[2020-03-28] MEDS: GUAIFENESIN 600 MG SA TAB PO SCH ×2 (09:02→20:47)
[2020-03-28] MEDS: PANTOPRAZOLE 40MG TABLET PO SCH ×2 (09:02→16:09)
[2020-03-28] MEDS: ASPIRIN EC 81 MG TAB PO SCH (09:02)
[2020-03-28] MEDS: ARFORMOTEROL TARTRATE 15 MCG/2 ML VIAL.NEB NEB SCH ×2 (09:05→19:50)
--- NOTE | 2020-03-28 11:16 | ECHO ---
HEIGHT: 5 ft 3 in WEIGHT: 85 lb 0 oz DATE OF STUDY: 03/27/[address]: Veronica Tony MD 2-DIMENSIONAL: YES M.MODE: YES DOPPLER: YES COLOR FLOW: YES TDS: NO PORTABLE: NO DEFINITY: NO BUBBLE STUDY: NO DIAGNOSIS: CEREBRAL VASCULAR ACCIDENT CARDIAC HISTORY: CATHERIZATION: NO SURGERY: NO PROSTHETIC VALVE: NO PACEMAKER: NO MEASUREMENTS (cm) DIASTOLIC (NORMALS) SYSTOLIC (NORMALS) IVSd 0.8 (0.6-1.2) LA Diam 3.2 (1.9-4.0) LVEF 74% LVIDd 2.3 (3.5-5.7) LVIDs 1.4 (2.0-3.5) %FS 41% LVPWd 0.8 (0.6-1.2) Ao Diam 2.8 (2.0-3.7) 2 DIMENSIONAL ASSESSMENT: RIGHT ATRIUM: NORMAL LEFT ATRIUM: NORMAL RIGHT VENTRICLE: NORMAL LEFT VENTRICLE: NORMAL TRICUSPID VALVE: NORMAL MITRAL VALVE: MILD MITRAL VALVE PROLAPSE PULMONIC VALVE: NORMAL AORTIC VALVE: NORMAL PERICARDIAL EFFUSION: NONE AORTIC ROOT: NORMAL LEFT VENTRICULAR WALL MOTION: NORMAL. DOPPLER/COLOR FLOW: MILD TRICUSPID REGURGITATION - RIGHT VENTRICULAR SYSTOLIC PRESSURE 41mmHg. COMMENTS: NORMAL LEFT VENTRICULAR SIZE AND FUNCTION. MILD MITRAL VALVE PROLAPSE. NO WALL MOTION ABNORMALITY. NO EFFUSION. NO VEGETATION. NO THROMBUS. MILD PULMONARY HYPERTENSION 41mmHg RIGHT VENTRICULAR SYSTOLIC PRESSURE. TECHNOLOGIST: EDI OBREGON
[2020-03-28] MEDS: metroNIDAZOLE 500 MG TABLET PO SCH ×2 (13:44→20:47)
--- NOTE | 2020-03-28 15:01 | P.PN ---
Subjective Date of Service: 03/28/20 Chief Complaint: Confusion shortness of breath interstitial lung disease Subjective: No new changes, No C/O voiced (-feel weak) Physical Examination - Vital Signs Temperature: 97.2 F Blood Pressure: 124/74 Pulse: 90 Respirations: 17 Pulse Ox (%): 95 - Physical Exam General: Alert, In no apparent distress, Cachectic HEENT: Atraumatic, Normocephalic, PERRLA Neck: Supple, 2+ carotid pulse no bruit, JVD not distended Respiratory: Clear to auscultation bilaterally, Normal air movement Cardiovascular: Normal pulses, Regular rate/rhythm, Normal S1 S2 Gastrointestinal: Normal bowel sounds, Soft and benign, Non-distended, No ascites, No tenderness Musculoskeletal: No clubbing, No swelling Integumentary: No rashes, No breakdown Neurological: Normal speech, Normal strength at 5/5 x4 extr - Studies Laboratory Last Values WBC 12.0 K/uL (4.3-10.9) H 03/26/20 12:25 RBC 4.43 M/uL (3.86-4.86) 03/26/20 12:25 Hgb 13.9 g/dL (12.0-15.0) 03/26/20 12:25 Hct 42.3 % (36.0-45.0) 03/26/20 12:25 MCV 95.3 fL (80-100) 03/26/20 12:25 MCH 31.4 pg (27.0-35.0) 03/26/20 12:25 MCHC 32.9 g/dL (32.0-36.0) 03/26/20 12:25 RDW 15.0 % (12.1-15.2) 03/26/20 12:25 Plt Count 323 K/uL (152-406) 03/26/20 12:25 MPV 7.7 fL (7.6-11.3) 03/26/20 12:25 Neutrophils % 85.8 % (41.7-73.7) H 03/26/20 12:25 Lymphocytes % 7.7 % (15.3-44.8) L 03/26/20 12:25 Monocytes % 5.9 % (3.3-12.3) 03/26/20 12:25 Eosinophils % 0.2 % (0-4.4) 03/26/20 12:25 Basophils % 0.4 % (0-1.3) 03/26/20 12:25 Absolute Neutrophils 10.3 K/uL (1.8-8.0) H 03/26/20 12:25 Absolute Lymphocytes 0.9 K/uL (0.7-4.9) 03/26/20 12:25 Absolute Monocytes 0.7 K/uL (0.1-1.3) 03/26/20 12:25 Absolute Eosinophils 0.0 K/uL (0-0.5) 03/26/20 12:25 Absolute Basophils 0.0 K/uL (0-0.5) 03/26/20 12:25 Morphology Comment Not seen (NOT SEEN) 03/26/20 12:25 Sodium 132 mmol/L (136-145) L 03/26/20 12:25 Potassium 4.7 mmol/L (3.5-5.1) 03/26/20 12:25 Chloride 99 mmol/L (98-107) 03/26/20 12:25 Carbon Dioxide 26 mmol/L (21-32) 03/26/20 12:25 BUN 25 mg/dL (7-18) H 03/26/20 12:25 Creatinine 0.80 mg/dL (0.55-1.3) 03/26/20 12:25 Estimated GFR 70 mL/min (=/>90) L 03/26/20 12:25 Glucose 116 mg/dL (74-106) H 03/26/20 12:25 Calcium 9.7 mg/dL (8.5-10.1) 03/26/20 12:25 Magnesium 2.3 mg/dL (1.8-2.4) 03/26/20 12:25 Total Bilirubin 0.9 mg/dL (0.2-1.0) 03/26/20 12:25 Direct Bilirubin 0.2 mg/dL (0-0.2) 03/26/20 12:25 AST 28 U/L (15-37) 03/26/20 12:25 ALT 29 U/L (12-78) 03/26/20 12:25 Alkaline Phosphatase 63 U/L (45-117) 03/26/20 12:25 Rapid Troponin I 0.02 ng/mL (0.0-0.045) 03/26/20 12:25 NT-Pro-B Natriuret Pep 1310 pg/mL (<450) H 03/26/20 12:25 Serum Total Protein 8.7 g/dL (6.4-8.2) H 03/26/20 12:25 Albumin 3.7 g/dL (3.4-5.0) 03/26/20 12:25 Globulin 5.0 g/dL (2.3-3.5) H 03/26/20 12:25 Albumin/Globulin Ratio 0.7 (1.1-1.8) L 03/26/20 12:25 Medications List Reviewed: Yes Assessment And Plan - Current Problems (Diagnosis) (1) Pneumonitis Current Visit: Yes Status: Acute (2) Hypertension Current Visit: Yes Status: Acute (3) Diabetes mellitus Current Visit: Yes Status: Acute (4) Dementia Current Visit: Yes Status: Acute (5) Dysphagia Current Visit: Yes Status: Acute (6) Dysphagia causing pulmonary aspiration with swallowing Current Visit: Yes Status: Acute Physician Review: Patient Assessed, Agree with Above Assessment and Plan Physician Review Additional Text: #Dysphagia - on modified honey thick diet now -likely due to dementia -s/p failed solid consistency on barium swallow #Hypoxemia-Improving -due to right Aspiration Pneumonia and acute pneumonitis from dysphagia -c/w abx with Augmentin and flagyl now . Hypertension-controlled .avoid beta blockers for now if any History of diabetes-on Amaryl - will hold for now since NPO -previously diet controlled -c/w insulin sliding scale History of dementia -may need Aricept and namenda Anorexia - on megace Asthenia - still weak and unsafe for home discharge due to spouse unable to provide -c/w PT/OT, -will need SNF -discussed with family today DVT prophylaxis-subcutaneous heparin Advanced directive- full code. Time Spent Managing PTS Care (In Minutes): 65
[2020-03-28 15:49] VITALS: BMI 15.0
[2020-03-28] MEDS: DONEPEZIL HCL 5 MG TAB PO SCH (20:47)
[2020-03-28] MEDS: AMOX/K CLAV 500 MG TAB PO SCH (20:47)
[2020-03-28] MEDS: GUAIFENESIN/DM 5 ML UCUP PO PRN (20:47)
[2020-03-29 04:18] LABS: Absolute Lymphocytes (CBC) 2.6 K/uL (0.7-4.9); Basophils % 0.4 % (0-1.3); Hematocrit 33.5 % (36.0-45.0); Lymphocytes % 18.4 % (15.3-44.8); MPV 7.8 fL (7.6-11.3); RBC Red Blood Cell Count 3.47 M/uL (3.86-4.86)
[2020-03-29 04:25] LABS: Albumin 2.6 g/dL (3.4-5.0); Bilirubin Total 0.5 mg/dL (0.2-1.0); Potassium 4.2 mmol/L (3.5-5.1); Protein, Total 6.2 g/dL (6.4-8.2)
[2020-03-29] MEDS: LEVOTHYROXINE SOD 0.025 MG TAB PO SCH (05:55)
[2020-03-29] MEDS: GUAIFENESIN/DM 5 ML UCUP PO PRN (05:57)
[2020-03-29] MEDS: ARFORMOTEROL TARTRATE 15 MCG/2 ML VIAL.NEB NEB SCH (07:20)
[2020-03-29] MEDS: INSULIN -REGULAR HUMAN 50 UNIT/0.5 ML ML SQ SCH ×3 (07:30→16:23)
[2020-03-29] MEDS: GLUCERNA SHAKE 237 ML CAN PO SCH ×2 (09:00→14:00)
[2020-03-29] MEDS: ASPIRIN EC 81 MG TAB PO SCH (09:05)
[2020-03-29] MEDS: AMOX/K CLAV 500 MG TAB PO SCH (09:05)
[2020-03-29] MEDS: SERTRALINE HCL 50 MG TAB PO SCH (09:05)
[2020-03-29] MEDS: metroNIDAZOLE 500 MG TABLET PO SCH ×2 (09:05→14:11)
[2020-03-29] MEDS: MEGESTROL 40 MG TAB PO SCH (09:05)
[2020-03-29] MEDS: ATORVASTATIN 20 MG TAB PO SCH (09:06)
[2020-03-29] MEDS: GABAPENTIN 300 MG CAP PO SCH (09:06)
[2020-03-29] MEDS: OXYBUTYNIN CHLORIDE 5 MG TAB PO SCH (09:06)
[2020-03-29] MEDS: CLOPIDOGREL 75 MG TABLET PO SCH (09:06)
[2020-03-29] MEDS: GUAIFENESIN 600 MG SA TAB PO SCH (09:06)
[2020-03-29] MEDS: PANTOPRAZOLE 40MG TABLET PO SCH ×2 (09:06→16:56)
[2020-03-29] MEDS: ENOXAPARIN 40 MG/0.4 ML SQ SCH (09:07)
--- NOTE | 2020-03-29 13:01 | P.PN ---
Subjective Date of Service: 03/29/20 Chief Complaint: Confusion shortness of breath interstitial lung disease Patient's condition is stable she has idiopathic pulmonary fibrosis and problems with swallowing and aspiration scheduled to go to a shelter Review of Systems General: Weakness Respiratory: Shortness of Breath Physical Examination - Vital Signs Temperature: 99.0 F Blood Pressure: 150/71 Pulse: 81 Respirations: 24 Pulse Ox (%): 94 - Physical Exam General: Alert, In no apparent distress, Oriented x3 HEENT: Other Neck: Supple Respiratory: Crackles/rales (Crackles at the bases) Cardiovascular: No edema, Regular rate/rhythm - Studies Medications List Reviewed: Yes Assessment & Plan - Problems (Diagnosis) (1) Pulmonary fibrosis Current Visit: Yes Status: Acute Plan: Patient most likely has idiopathic pulmonary fibrosis she has subpleural cystic changes patient does not qualify for home O2 former smoker recommend [facility]nisone 10 mg twice a day for 2 weeks discharge in follow with me patient is problem with aspiration seen by speech therapist white count is declining cultures are pending james virus negative Physician Review: Patient Assessed, Agree with Above Assessment and Plan
[2020-03-29] MEDS ORDERED: POLYETHYL GLY 3350 17 GM/DOSE PO PRN (14:45)
--- NOTE | 2020-03-29 14:56 | PN ---
Date of Progress Note: 03/29/2020 Patient seen and examined. Chart reviewed and case discussed with RN. Daughter at the bedside. Jeronimo atment plan explained, all questions answered. Case discussed with Dr. Bernal. Patient is doing b olayinka, now on room air. Medications: List reviewed. Code Status: Full. Physical Examination: Vital Signs: Temperature 99, heart rate 81, blood pressure 150/71, respirations 24, O2 94% on room a ir. General: Awake, alert, oriented x3. Elderly female, frail, cachectic. BMI 15. CV: S1, S2. Regular rate and rhythm. Peripheral pulses weak. Respiratory: Diminished breath sounds. Minimal wheezing. Patient is tachypneic without use of acce ssory muscles. Gastrointestinal: Abdomen is soft, nontender, nondistended. Positive bowel sounds. Extremities: No clubbing, cyanosis, or edema. Neuro: Nonfocal. Skin: No rashes. Normal skin turgor. Psych: Mood is okay. Affect is full. Insight and judgment are fair. Laboratory Data: Sodium 137, potassium 4.2, chloride 106, CO2 of 27, BUN 28, creatinine 0.79, glucos e 102, calcium 8.4, albumin 2.6. WBC 14, H and H 11.6 and 33.5, platelets 239, neutrophils 72%. Spu victorino culture pending. Assessment: 1.Acute respiratory distress with hypoxemia, improved. 2.Likely pneumonitis, likely aspiration type pneumonia due to dysphagia, on antibiotics. 3.Dysphagia status post modified barium swallow study, now on mechanically ground diet and thickened liquids. Continue aspiration precautions. 4.Essential hypertension, stable. Continue home medications. 5.Diabetes mellitus type 2, [id number], with hyperglycemia. We will continue sliding sca le insulin and monitor blood glucose levels. 6.Hypothyroidism. Continue Synthroid. 7.Pulmonary fibrosis. 8.Acute chronic obstructive pulmonary disease exacerbation, improved. We will continue nebulizers. Likely discharge on Perforomist or Brovana at the nursing facility. 9.Dementia, likely Alzheimer's type without behavioral disturbance, stable. 10.Moderate protein-calorie malnutrition. BMI 15. Albumin is 2.6. Continue Megace and protein sup plementation. 11.Deep vein thrombosis prophylaxis. Patient is on heparin. Plan: The patient is being referred to custodial facility. We will discharge once accepted. SA/MODL Voice ID: [id number] Report ID: [id number]
[2020-03-29 16:01] VITALS: O2SAT 94
[2020-03-29 16:58] VITALS: BP 138/69; TEMP 98
--- NOTE | 2020-03-29 20:27 | DS ---
Date of Discharge: 03/29/2020 Consultants: Dr. Bernal with Pulmonology. Admitting Diagnoses: 1.Acute respiratory distress with hypoxia. 2.Acute pneumonitis aspiration pneumonia. 3.Essential hypertension. 4.Diabetes mellitus, type 2 [id number]-[id number] with hyperglycemia. 5.Alzheimer's dementia without behavioral disturbance early onset. Discharge Diagnoses: 1.Acute respiratory distress with hypoxia, improved. 2.Aspiration pneumonia and pneumonitis, improved. 3.Dysphagia, now on mechanical ground and thickened liquids. 4.Essential hypertension, stable. 5.Acute chronic obstructive pulmonary disease exacerbation, improving. 6.Diabetes mellitus type 2, exk-iwrslul-etmqzjawi with hyperglycemia, stable. 7.Hypothyroidism, stable. 8.Pulmonary fibrosis, chronic. 9.Dementia Alzheimer's type without behavioral disturbance, early onset. 10.Moderate protein calorie malnutrition. Hospital Course: Patient is a 74-year-old female with past medical history of hypertension, diabetes , brought in due to increasing shortness of breath for the past several months and weakness, decrease d appetite. Patient's x-ray showed pneumonitis superimposed on interstitial fibrosis. Patient was c hecked for COVID, which was negative. White blood cell count was elevated, however, improved. She a lso had a COPD exacerbation and was treated with steroids and nebulizer treatments. Patient was seen by Pulmonology, Dr. Bernal. Patient also had a CT chest, which showed extensive predominantly sub pleural interstitial thickening pattern with scattered bulla and blood formation in each upper lobe c onsistent with idiopathic pulmonary fibrosis and had some minimal alveolar components in the posterio r right upper lobe and superior segment right lower lobe, which was thought to be pneumonia superimpo sed on chronic fibrotic lung pattern. Patient was treated with IV antibiotics. Patient also was kumar pected to have aspiration. Therefore, speech evaluation was done and swallowing function was evaluat ed using modified barium swallow study. She was switched to a mechanically ground and thickened liqu id diet. Patient was then cleared for discharge. She was doing better. She was working with Physic al Therapy. She was cleared for discharge from Dr. Bernal standpoint. She was referred to assisted facility due to her disuse myopathy and deconditioning. Patient was accepted to [facility] and was discharged to the facility in a stable condition. Activities: Fall precautions. Diet: Diabetic with thickened liquids and mechanically ground diet. Followup: Follow up with primary care physician in 2-3 days. Follow up with avionics mechanic, Dr. Lobo humphries in 2 weeks. Return to ER for worsening condition. Medications: As per medication reconciliation list. Finish off course of antibiotics and steroid co urse. Physical Examination: Findings please see progress note dictated on the day of discharge. Total time spent discharging patient was 43 minutes. RACHEAL Voice ID: [id number] Report ID: [id number]
[2020-03-29] MEDS ORDERED: DOCUSATE NA 100 MG CAP PO SCH (21:00)
== END 2020-03-29 18:06 | DRG 178 ==
LOC: ER 11:26 → ERHOLD 16:34 → 2ND 17:44
PROVIDERS: ADMIT Internal Medicine; ATTEND Family Medicine
DX: J69.0 Pneumonitis due to inhalation of food and vomit (principal); Z68.1 Body mass index [BMI] 19.9 or less, adult; J44.1 Chronic obstructive pulmonary disease with (acute) exacerbation; E44.0 Moderate protein-calorie malnutrition; I10 Essential (primary) hypertension; Z20.828 Contact with and (suspected) exposure to other viral communicable diseases; Z79.899 Other long term (current) drug therapy; Z79.890 Hormone replacement therapy; Z86.73 Personal history of transient ischemic attack (TIA), and cerebral infarction without residual deficits; Z95.5 Presence of coronary angioplasty implant and graft; R13.10 Dysphagia, unspecified; R63.0 Anorexia; R53.1 Weakness; Z79.02 Long term (current) use of antithrombotics/antiplatelets; I25.10 Atherosclerotic heart disease of native coronary artery without angina pectoris; Z87.891 Personal history of nicotine dependence; J84.112 Idiopathic pulmonary fibrosis; R06.03 Acute respiratory distress; R09.02 Hypoxemia; E11.65 Type 2 diabetes mellitus with hyperglycemia; E03.9 Hypothyroidism, unspecified; F02.80 Dementia in other diseases classified elsewhere, unspecified severity, without behavioral disturbance, psychotic disturbance, mood disturbance, and anxiety; G30.0 Alzheimer's disease with early onset
CPT/HCPCS: 36415; 71045; 71250; 74230; 80048; 80053; 80076; 82553; 82607; 82947; 83735; 83880; 84443; 84484; 85025; 92526; 92610; 92611; 93005; 93306; 94640; 94760; 96374; 97112; 97116; 97161; 97165; 97530; 99285; J0696; J1630; J1650; J1940; J2930; J7030; J7120; J7605; U0002